=== PATIENT | male | born 1930 | race Caucasian/White ===

== ENCOUNTER 2017-05-15 11:01 | Emergency (ER) | payer MEDICARE ==
[2017-05-15] MEDS ORDERED: SODIUM CHLORIDE 0.9% 1,000 ML IV STA (11:10)
[2017-05-15] MEDS ORDERED: VANCOMYCIN IV PER PHARMACY 1 EACH MISC MISCELLANE PRN (11:10)
[2017-05-15] MEDS ORDERED: cefTRIAXone IN SWFI 1,000 MG/10 ML SYRINGE IVP STA (11:10)
[2017-05-15] MEDS ORDERED: METOPROLOL TARTRATE 5 MG/5 ML VIAL IVP STA (11:11)
--- NOTE | 2017-05-15 11:13 | ED ---
General Adult HPI - General Stated complaint: infection foot Time Seen by Provider: 05/15/17 11:03 Source: RN notes reviewed, old records reviewed - History of Present Illness Initial comments: This is a 6-year-old male to the ER for evaluation of right foot infection. Patient was sent in for evaluation from [place]. Patient himself is without complaint, denies pain. Patient does admit history of atrial fibrillation, is in nature for ablation with RVR currently. Patient had increasing and spreading erythema of right lower extremity earlier today. The infection was monitored over a couple hours and significantly continue to spread. No known fevers. Patient denies any increase in pain right lower extremity. Patient was just discharged after surgery - Related Data Home Medications Medication Instructions Recorded Confirmed Allopurinol [Zyloprim] 100 mg PO DAILY@0900 02/10/14 05/15/17 Acetaminophen Tab [Tylenol Tab] 650 mg PO Q4H PRN 05/15/17 05/15/17 Amino Acids/Protein Hydrolys 30 ml PO BID@0900,1700 05/15/17 05/15/17 [Pro-Stat Supplement] Ammonium Lactate Lotion 1 applic TOPICAL BID 05/15/17 05/15/17 [Lac-Hydrin 12% Lotion] Atorvastatin [Lipitor] 20 mg PO HS@209905/15/17 05/15/17 Clopidogrel [Plavix] 75 mg PO DAILY@0905/15/17 05/15/17 Ferrous Sulfate [Iron] 325 mg PO DAILY@0900 05/15/17 05/15/17 Furosemide [Lasix] 40 mg PO DAILY@0600 05/15/17 05/15/17 Gabapentin [Neurontin] 100 mg PO BID@0900,209905/15/17 05/15/17 HYDROcodone/APAP 5-325MG [[place] 1 tab PO Q6H PRN 05/15/17 05/15/17 5-325] Memantine [Namenda] 5 mg PO BID@0900,209905/15/17 05/15/17 Metoprolol Succinate (ER) [Toprol 75 mg PO DAILY@0900 05/15/17 05/15/17 Xl] Multivitamins, Thera [Multivitamin 1 tab PO DAILY@0900 05/15/17 05/15/17 (formulary)] Pantoprazole Sodium [Protonix] 40 mg PO DAILY@0600 05/15/17 05/15/17 Tamsulosin HCl [Flomax] 0.4 mg PO BID@0900,2100 05/15/17 05/15/17 Warfarin [Coumadin] 2 mg PO DAILY@1700 05/15/17 05/15/17 Allergies Allergy/AdvReac Type Severity Reaction Status Date / Time celecoxib [From Celebrex] Allergy Unknown Verified 05/15/17 11:28 Review of Systems ROS Statement: Those systems with pertinent positive or pertinent negative responses have been documented in the HPI. ROS Other: All systems not noted in ROS Statement are negative. Past Medical History Past Medical History: Deep Vein Thrombosis (DVT), GERD/Reflux, Pulmonary Embolus (PE) Additional Past Medical History / Comment(s): A-FIB,ASBESTOS, ANEURYSM -BRAIN AND AORTIC History of Any Multi-Drug Resistant Organisms: None Reported Past Surgical History: Prostate Surgery Additional Past Surgical History / Comment(s): TORN ACHILLES; SINUS SURG Past Anesthesia/Blood Transfusion Reactions: No Reported Reaction Past Psychological History: No Psychological Hx Reported Smoking Status: Never smoker Past Alcohol Use History: Daily Past Drug Use History: None Reported General Exam - General Exam Comments Initial Comments: 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 Absent: scleral icterus, conjunctival injection, periorbital swelling ENT exam: Present: normal exam, mucous membranes moist Neck exam: Present: normal inspection. Absent: tenderness, meningismus, lymphadenopathy Respiratory exam: Present: normal lung sounds bilaterally. Absent: respiratory distress, wheezes, rales, rhonchi, stridor Cardiovascular Exam: Present: regular rate, normal rhythm, normal heart sounds. Absent: systolic murmur, diastolic murmur, rubs, gallop, clicks GI/Abdominal exam: Present: soft, normal bowel sounds. Absent: distended, tenderness, guarding, rebound, rigid Extremities exam: Present: normal inspection, full ROM, normal capillary refill. Absent: tenderness, pedal edema, joint swelling, calf tenderness Back exam: Present: normal inspection Neurological exam: Present: alert, oriented X3, CN II-XII intact Psychiatric exam: Present: normal affect, normal mood Skin exam: Present: warm, dry, intact, normal color. Absent: rash Course Vital Signs 05/15/17 11:14 Pulse Rate 74 Respiratory 20 Rate Blood Pressure 105/73 O2 Sat by Pulse 97 Oximetry - Reevaluation(s) Reevaluation #1: 05/15/17 11:52 Spoke with patient's physician, patient will be transferred for inpatient treatment EKG Findings - EKG Comments: EKG Findings:: EKG shows A. fib rate of 94, QRS 70, QTc 455 Medical Decision Making - Medical Decision Making 86 male the ER with worsening infection. Infection right lower [place]. Patient to be transferred to [facility] where he had surgery Disposition Clinical Impression: Cellulitis of right lower extremity, Post op infection, Gangrene Disposition: OTHER INSTITUTION NOT DEFINED Condition: Fair Referrals: Chris Gallardo MD [Primary Care Provider] - 1-2 days - Out of Hospital Transfer - Req. Specs Out of Hospital Transfer - Requested Specifics: Other Emergency Center ([facility]
[2017-05-15 11:28] VITALS: BP 105/73; PULSE 74; RESP 20
[2017-05-15] MEDS ORDERED: VANCOMYCIN 1,250 MG in SODIUM CHLORIDE 0.9% 250 ML IVPB STA (11:35)
[2017-05-15 12:29] LABS: Basophils % (A) 0 %; Eosinophils # (A) 0.4 k/uL (0-0.7); Eosinophils % (A) 5 %; HCT 27.1 % (39.0-53.0); HGB 8.3 gm/dL (13.0-17.5); Hypochromasia Moderate; Lymphocytes # (A) 0.9 k/uL (1.0-4.8); Lymphocytes % (A) 10 %; MCH 25.1 pg (25.0-35.0); MCHC 30.8 g/dL (31.0-37.0); MCV 81.5 fL (80.0-100.0); Mean Platelet Volume 7.7; Monocytes # (A) 0.8 k/uL (0-1.0); Monocytes % (A) 8 %; Neutrophils % (A) 75 %; Platelet Count 334 k/uL (150-450); Poikilocytosis Slight; RBC 3.33 m/uL (4.30-5.90); RDW 15.7 % (11.5-15.5); WBC 9.4 k/uL (3.8-10.6)
[2017-05-15 12:41] LABS: Albumin 3.3 g/dL (3.5-5.0); Magnesium 2.2 mg/dL (1.6-2.3); Partial Thromboplastin Time 28.2 sec (22.0-30.0); Phosphorus 3.4 mg/dL (2.5-4.5); Potassium 4.3 mmol/L (3.5-5.1); Prothrombin Time 26.5 sec (9.0-12.0); Total Bilirubin 0.4 mg/dL (0.2-1.3); Total Protein 6.3 g/dL (6.3-8.2)
[2017-05-15 13:03] LABS: Creatine Kinase MB 1.2 ng/mL (0.0-2.4); Troponin I 0.013 ng/mL (0.000-0.034)
[2017-05-16] MEDS ORDERED: cefTRIAXone IN SWFI 1,000 MG/10 ML SYRINGE IVP SCH (09:00)
== END 2017-05-15 12:34 | disposition short-term general hospital (02) ==
LOC: EC 11:01
DX: T81.4XXA Infection following a procedure, initial encounter (principal); L03.115 Cellulitis of right lower limb; I96 Gangrene, not elsewhere classified; I48.91 Unspecified atrial fibrillation; K21.9 Gastro-esophageal reflux disease without esophagitis; Z79.01 Long term (current) use of anticoagulants; Z79.02 Long term (current) use of antithrombotics/antiplatelets; Z79.899 Other long term (current) drug therapy; Z88.6 Allergy status to analgesic agent; Z86.711 Personal history of pulmonary embolism; Z86.718 Personal history of other venous thrombosis and embolism; Z86.79 Personal history of other diseases of the circulatory system; Z89.611 Acquired absence of right leg above knee
CPT/HCPCS: 36415; 93005; 80053; 82550; 82553; 83735; 84100; 84484; 85025; 85610; 85730; 87040; 99285; 96374; 96375; J3370; J0696